=== PATIENT | female | born 2000 | race Caucasian/White ===

== ENCOUNTER 2022-05-13 10:55 | Emergency (ER) | payer OTHER, SELFPAY ==
[2022-05-13] MEDS ORDERED: predniSONE 20 MG TAB ONE (15:01)
[2022-05-13] MEDS ORDERED: Famotidine 20 MG TAB ONE (15:03)
== END 2022-05-13 15:40 | disposition home or self-care (01) ==
LOC: CSHERS 10:55
DX: L29.9 Pruritus, unspecified (principal); F17.290 Nicotine dependence, other tobacco product, uncomplicated
CPT/HCPCS: 71045; J7512

== ENCOUNTER 2022-09-28 13:53 | Emergency (ER) | payer SELFPAY | END 2022-09-28 16:41 | disposition home or self-care (01) | LOC: CSHERS 13:53 | DX: B86 Scabies (principal); J45.909 Unspecified asthma, uncomplicated; F17.290 Nicotine dependence, other tobacco product, uncomplicated | CPT/HCPCS: 99282 ==

== ENCOUNTER 2025-06-27 11:43 | Emergency (ER) | payer OTHER, SELFPAY ==
[2025-06-27 12:36] LABS: Glucose, Urine (Dipstick) Normal (Negative); Leukocyte 100 (Negative); Protein, Urine (Dipstick) 15 mg/dl (Neg-Trace); Specific Gravity, Urine 1.015 (1.005-1.030)
[2025-06-27 12:48] LABS: CAUTI Indications for Culture Pregnancy; RBC/HPF 0-3 HPF (0-3)
[2025-06-27 12:49] LABS: Bacteria/HPF 1+ HPF (None Seen); Mucous/LPF 1+ LPF (<2+)
[2025-06-27 12:50] LABS: Urine Culture Reflex Yes Yes
[2025-06-27] MEDS ORDERED: cefTRIAXone (ROCEPHIN) 1 GM VIAL ONE ×2 (14:02→14:09)
[2025-06-28 00:03] LABS: Chlamydia by PCR, Vaginal Swab Not Detected (NotDetected); GC by PCR, Vaginal Swab Not Detected (NotDetected)
== END 2025-06-27 14:15 | disposition home or self-care (01) ==
LOC: CSHERS 11:43
DX: O23.592 Infection of other part of genital tract in pregnancy, second trimester (principal); O23.42 Unspecified infection of urinary tract in pregnancy, second trimester; N39.0 Urinary tract infection, site not specified; Z3A.22 22 weeks gestation of pregnancy
CPT/HCPCS: 81001; 87086; 87480; 87491; 87510; 87591; 87660; 96372; 99283; J0696